=== PATIENT | male | born 1950 | race African-American/Black ===

== ENCOUNTER → 2017-01-02 | Outpatient (CLI) | payer MEDICARE ==
--- NOTE | 2017-01-02 11:13 | RAD ---
PROCEDURE Cervical spine MRI without contrast. HISTORY Neck pain and left hand numbness. TECHNIQUE Multiplanar and multi sequence magnetic resonance imaging of the cervical spine was performed without contrast. COMPARISON None. FINDINGS There is straightening of cervical lordosis. There is minimal grade 1 anterolisthesis of C3 on C4, retrolisthesis of C4 on C5 and C6 on C7 and anterolisthesis of C7 on T1. There is degenerative endplate remodeling with osteophytosis at multiple levels. There are few endplate Schmorl's nodes. There is deformation of the spinal cord at multiple levels, without significant stenosis. There is a elongated T2 hyperintense lesion within the upper thoracic spinal cord at the level of T2-T3. This measures 8 mm in length and 3 mm in caliber. This is not included on axial images. No additional spinal cord lesion is seen. There is a small left maxillary sinus mucous retention cyst. The posterior fossa is unremarkable. At C2-C3, there is a right paracentral disc protrusion with osteophyte complex superimposed on endplate remodeling. There is mild bilateral facet arthropathy. There is minimal right foraminal stenosis. At C3-C4, there is a left foraminal disc protrusion superimposed on a disc bulge and endplate remodeling. There is mild bilateral facet arthropathy. There is mild left foraminal stenosis. At C4-C5, there is a right posterior lateral predominant disc bulge and endplate osteophytosis. There is right greater than left uncovertebral arthropathy. There is mild facet arthropathy. There is moderate to severe right and mild left foraminal stenosis. There is slight flattening of the ventral aspect of the spinal cord without significant central canal stenosis. At C5-C6, there is a broad-based posterior central to left paracentral disc protrusion superimposed on a disc bulge and endplate osteophytosis. There is uncovertebral arthropathy. There is mild facet arthropathy. There is mild bilateral foraminal stenosis. There is flattening the left ventral aspect of the spinal cord without significant central canal stenosis. At C6-C7, there is a right posterior lateral predominant disc bulge and endplate osteophytosis. There is right uncovertebral arthropathy. There is mild to moderate right foraminal stenosis. There is flattening of the ventral aspect of the spinal cord without significant central canal stenosis At C7-T1, there is a left paracentral to lateral recess disc protrusion with minimal superior extrusion superimposed on a disc bulge and endplate remodeling. There is mild right facet arthropathy. There is moderate to severe right and mild left foraminal stenosis. At T1-T2, there is a broad-based posterior central disc protrusion with slight inferior extrusion superimposed on a diffuse disc bulge and endplate osteophytosis. There is uncovertebral arthropathy. There is moderate to severe bilateral foraminal stenosis. At T2-T3, there is a posterior central disc protrusion superimposed on a disc bulge. There is mild left facet arthropathy. There is no stenosis. IMPRESSION 1. Multilevel degenerative change throughout the cervical and upper thoracic spine, resulting in significant foraminal stenosis at the aforementioned levels. There is slight deformation of the spinal cord at multiple levels without significant central canal stenosis. 2. 7 x 3 mm linear T2 hyperintense lesion within the upper thoracic spinal cord at T2-T3. This is not included on axial images. 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 Electronically signed by: Christen Ashley (Jan 02, 2017 11:11:32)
--- NOTE | 2017-01-02 13:16 | RAD ---
CT of the head without contrast, 01/02/2017: History: Left hand weakness and numbness The ventricles are within normal limits in size. There is no shift of the midline structures. There is no evidence of acute intracranial hemorrhage or mass effect. IMPRESSION: No acute intracranial abnormality is detected. PQRS Compliance Statement: One or more of the following individualized dose reduction techniques were utilized for this examination: 1. Automated exposure control 2. Adjustment of the mA and/or kV according to patient size 3. Use of iterative reconstruction technique
== END | disposition home or self-care (01) ==
LOC: MRI 12:53
PROVIDERS: ATTEND Physical Medicine & Rehabilitation
DX: R20.0 Anesthesia of skin (principal); R53.1 Weakness; M48.02 Spinal stenosis, cervical region; M47.894 Other spondylosis, thoracic region
CPT/HCPCS: 70450; 72141